=== PATIENT | male | born 1935 | race Native Hawaiian/Other Pacific Islander ===

== ENCOUNTER 2022-08-28 12:13 | Outpatient (CLI) | payer OTHER ==
[2022-08-28 13:25] LABS: PLATELET COUNT 201 K/uL (142-355)
== END 2022-08-28 18:59 | disposition home or self-care (01) ==
LOC: LABW 12:13
PROVIDERS: ATTEND Internal Medicine
DX: S09.8XXA Other specified injuries of head, initial encounter (principal); M25.531 Pain in right wrist; M25.561 Pain in right knee; Y92.89 Other specified places as the place of occurrence of the external cause; D68.8 Other specified coagulation defects
CPT/HCPCS: 36415; 85027; 85610